=== PATIENT | male | born 1965 ===

== ENCOUNTER 2017-01-11 22:44 | Emergency (ER) | payer BC, OTHER ==
[2017-01-11 22:44] VITALS: BMI 39.9
[2017-01-11 22:56] VITALS: RESP 16; TEMP 98.3; O2SAT 96
--- NOTE | 2017-01-11 23:28 | ED PDOC ---
Arrival/HPI - General Chief Complaint: High Blood Sugar Time Seen by Provider: 01/11/17 23:13 Historian: Patient - History of Present Illness Narrative History of Present Illness (Text): 01/11/17 23:28 Jermain Bey is a 51 year old male, whose past medical history includes diabetes, hypertension, and hyperlipidemia, who presents to the Emergency department complaining of high blood sugar. Patient states he was recently diagnosed with diabetes mellitus on 01/06/2017 and placed on Metformin. Patient states for the past 5 days he has been experiencing high blood sugar, with blood glucose level of 449 today after eating. Patient states he has been taking medication as directed but denies any significant improvement. Patient states he feels tired and has "dry mouth" but otherwise feels fine. Patient denies any chest pain, shortness of breath, headache, dizziness, nausea, vomiting, diarrhea, urinary symptoms, back pain, neck pain, or any other complaints. PMD: Dr. Tillman Time/Duration: < week (5 days) Symptom Onset: Gradual Symptom Course: Unchanged Activities at Onset: Rest, Light Context: Home Past Medical History - Provider Review Nursing Documentation Reviewed: Yes - Infectious Disease Hx of Infectious Diseases: None - Cardiac Hx Hypertension: Yes - Endocrine/Metabolic Hx Diabetes Mellitus Type 2: Yes Hx Hypothyroidism: Yes (thyoridectomy) - Musculoskeletal/Rheumatological Hx Falls: No - Gastrointestinal Other/Comment: h/o colon resection - Psychiatric Hx Substance Use: No - Surgical History Hx Appendectomy: Yes Other/Comment: R hand surgery. L knee surger - Anesthesia Hx Anesthesia: Yes Hx Anesthesia Reactions: No Hx Malignant Hyperthermia: No Family/Social History - Physician Review Nursing Documentation Reviewed: Yes Family/Social History: Unknown Family HX Smoking Status: Never Smoked Hx Alcohol Use: Yes Hx Substance Use: No Allergies/Home Meds Allergies/Adverse Reactions: Allergies No Known Allergies Allergy (Unverified 06/15/15 16:55) Home Medications: Home Meds Medication Instructions Recorded Confirmed Aspirin [Aspirin Chewable] 81 mg PO DAILY 04/16/16 04/16/16 Rosuvastatin Calcium [Crestor] 20 mg PO DAILY 04/16/16 04/16/16 Thyroid 1 tab PO DAILY 04/16/16 04/16/16 Valsartan/Hydrochlorothiazide 1 tab PO DAILY 04/16/16 04/16/16 [Valsartan-Hctz 320-25 mg Tab] Review of Systems - Physician Review All systems were reviewed & negative as marked: Yes - Review of Systems Constitutional: Normal. absent: Fevers Eyes: Normal ENT: Other (+dry mouth) Respiratory: Normal. absent: SOB, Cough Cardiovascular: Normal. absent: Chest Pain Gastrointestinal: Normal. absent: Abdominal Pain, Diarrhea, Nausea, Vomiting Genitourinary Male: Normal. absent: Dysuria, Frequency, Urinary Output Changes Musculoskeletal: Normal. absent: Back Pain, Neck Pain Skin: Normal. absent: Rash Neurological: Normal. absent: Headache, Dizziness Endocrine: Other (+high blood sugar) Hemo/Lymphatic: Normal Psychiatric: Normal Physical Exam Vital Signs Reviewed: Yes Vital Signs Temp Pulse Resp BP Pulse Ox 01/12/17 03:11 93 H 16 137/81 96 01/12/17 01:04 111 H 16 125/70 96 01/11/17 22:51 98.3 F 115 H 16 135/76 96 Temperature: Afebrile Blood Pressure: Normal Pulse: Regular Respiratory Rate: Normal Appearance: Positive for: Well-Appearing, Non-Toxic, Comfortable Pain Distress: None Mental Status: Positive for: Alert and Oriented X 3 - Systems Exam Head: Present: Atraumatic, Normocephalic Pupils: Present: PERRL Extroacular Muscles: Present: EOMI Conjunctiva: Present: Normal Mouth: Present: Moist Mucous Membranes Neck: Present: Normal Range of Motion Respiratory/Chest: Present: Clear to Auscultation, Good Air Exchange. No: Respiratory Distress, Accessory Muscle Use Cardiovascular: Present: Regular Rate and Rhythm, Normal S1, S2. No: Murmurs Abdomen: Present: Normal Bowel Sounds. No: Tenderness, Distention, Peritoneal Signs Back: Present: Normal Inspection Upper Extremity: Present: Normal Inspection. No: Cyanosis, Edema Lower Extremity: Present: Normal Inspection. No: Edema Neurological: Present: GCS=15, CN II-XII Intact, Speech Normal Skin: Present: Warm, Dry, Normal Color. No: Rashes Psychiatric: Present: Alert, Oriented x 3, Normal Insight, Normal Concentration Medical Decision Making ED Course and Treatment: 01/11/17 23:28 Impression: 51 year old male complaining of high blood sugar for 5 days. Differential Diagnosis included but are not limited to: diabetes mellitus vs. hypergylcemia Plan: -- Labs -- IV fluids -- Insulin -- Reassess and disposition Progress Notes: 01/12/17 03:14 On reevaluation the patient feels better and is in no acute distress. I have discussed the results and plan with the patient, who expresses understanding. Patient given the opportunity to ask question, all questions were answered and there is agreement with the plan to discharge the patient home. Patient is stable for discharge. Patient was instructed to follow up with physician/clinic in 1-2 days or return if symptoms persist/worsen or new concerning symptoms arise. Re-evaluation Time: 03:13 Reassessment Condition: Re-examined, Improved - Lab Interpretations Lab Results: 01/11/17 23:52 01/11/17 23:52 Lab Results 01/11/17 23:52: Sodium 138, Potassium 4.4, Chloride 93 L, Carbon Dioxide 30, Anion Gap 19, BUN 16, Creatinine 0.8, Est GFR ( Amer) > 60, Est GFR (Non- Af Amer) > 60, Random Glucose 387 H* D, Calcium 10.2, Total Bilirubin 1.0, AST 75 H, ALT 88 H, Alkaline Phosphatase 124, Total Protein 7.9, Albumin 4.4, Globulin 3.5, Albumin/Globulin Ratio 1.3 01/11/17 23:52: WBC 7.7, RBC 5.16, Hgb 16.6, Hct 46.7, MCV 90.5, MCH 32.2, MCHC 35.5, RDW 12.4, Plt Count 232, MPV 11.3 H, Gran % 65.1, Lymph % (Auto) 19.8 L, [place] % (Auto) 8.6 H, Eos % (Auto) 4.8, Baso % (Auto) 1.7, Gran # 4.98, Lymph # 1.5, [place] # 0.7 H, Eos # 0.4, Baso # 0.13 I have reviewed the lab results: Yes - Medication Orders Current Medication Orders: Sodium Chloride (Sodium Chloride 0.9%) 1,000 mls @ 150 mls/hr IV .Q6H40M [facility] Last Admin: 01/11/17 23:44 Dose: 150 mls/hr Discontinued Medications Insulin Human Regular (Humulin R) 6 units SC STAT STA Stop: 01/11/17 23:31 Last Admin: 01/11/17 23:43 Dose: 6 units - Scribe Statement The provider has reviewed the documentation as recorded by the [employer] Kelly [employer] Provider Scribe Attestation: All medical record entries made by the Scribe were at my direction and personally dictated by me. I have reviewed the chart and agree that the record accurately reflects my personal performance of the history, physical exam, medical decision making, and the department course for this patient. I have also personally directed, reviewed, and agree with the discharge instructions and disposition. Disposition/Present on Arrival - Present on Arrival Any Indicators Present on Arrival: No History of DVT/PE: No History of Uncontrolled Diabetes: No Urinary Catheter: No History of Decub. Ulcer: No History Surgical Site Infection Following: None - Disposition Have Diagnosis and Disposition been Completed?: Yes Diagnosis: Hyperglycemia Disposition: HOME/ ROUTINE Disposition Time: 03:14 Patient Problems: Current Active Problems Problem Status Onset Hyperglycemia Acute Condition: GOOD Discharge Instructions (ExitCare): Diabetic Hyperglycemia (ED) Prescriptions: glyBURIDE [Micronase] 2.5 mg PO DAILY #14 tab Referrals: Brodie Tillman MD [Primary Care Provider] - Follow up with primary Forms: [employer] (Macedonian)
[2017-01-11] MEDS ORDERED: Insulin Regular 1 UNITS/0.01 ML ML SC STA (23:30)
[2017-01-11] MEDS ORDERED: Sodium Chloride 0.9% 1,000 ML IV SCH (23:30)
[2017-01-12 00:02] LABS: BASO # 0.13 K/mm3 (0.0-2.0); BASO % 1.7 % (0.0-3.0); EOS # 0.4 (0.0-0.7); EOS % 4.8 % (1.5-5.0); GRAN # 4.98 (1.4-6.5); GRAN % 65.1 % (50.0-68.0); HEMOGLOBIN 16.6 g/dL (14.0-18.0); LYMPH # 1.5 (1.2-3.4); LYMPH % 19.8 % (22.0-35.0); MEAN CELL VOLUME 90.5 fl (80.0-105.0); MEAN CORPUSCULAR HEMOGLOBIN 32.2 pg (25.0-35.0); MEAN CORPUSCULAR HGB CONC 35.5 g/dl (31.0-37.0); MEAN PLATELET VOLUME 11.3 fl (7.0-11.0); MONO # 0.7 (0.1-0.6); MONO % 8.6 % (1.0-6.0); PLATELET COUNT 232 10^3/uL (120.0-450.0); RBC 5.16 10^6/uL (3.5-6.1); RED CELL DISTRIBUTION WIDTH 12.4 % (11.5-14.5); WHITE BLOOD COUNT 7.7 10^3/ul (4.5-11.0)
[2017-01-12 00:31] LABS: ALB/GLOB RATIO 1.3 (1.1-1.8); ALBUMIN 4.4 g/dL (3.0-4.8); ALT/SGPT 88 U/L (7-56); AST/SGOT 75 U/L (15-59); BLOOD UREA NITROGEN 16 mg/dL (7-21); CALCIUM 10.2 mg/dL (8.4-10.5); GFR AFRICAN-AMERICAN > 60; GFR NON-AFRICAN AMERICAN > 60
[2017-01-12 03:14] VITALS: BP 137/81; PULSE 93
== END 2017-01-12 03:30 | disposition home or self-care (01) ==
LOC: ED 22:44
DX: E11.65 Type 2 diabetes mellitus with hyperglycemia (principal); I10 Essential (primary) hypertension; E78.5 Hyperlipidemia, unspecified
CPT/HCPCS: 80053; 82948; 85025; 96372; 99283; J7040

== ENCOUNTER 2017-06-18 00:04 | Emergency (ER) | payer BC ==
[2017-06-18 00:28] VITALS: BMI 36.9
[2017-06-18] MEDS ORDERED: Sodium Chloride 0.9% 1,000 ML IV STA (00:33)
[2017-06-18] MEDS ORDERED: Morphine 2 mg/ml ISec IVP STA ×2 (00:33→02:03)
--- NOTE | 2017-06-18 00:33 | ED PDOC ---
Arrival/HPI - General Chief Complaint: Abdominal Pain Time Seen by Provider: 06/18/17 00:21 Historian: Patient - History of Present Illness Narrative History of Present Illness (Text): 06/18/17 00:32 Jermain Bey is a 51 year old male, whose past medical history includes diverticulitis, colon resection, appendectomy, diabetes, hypertension, and hyperlipidemia, who presents to the Emergency department complaining of abdominal pain. Patient states he has been experiencing intermittent upper abdominal pain for a while but states pain worsened over the past 4-5 days. Patient also reports associated nausea and intermittent diarrhea. Patient denies any fever, chills, chest pain, shortness of breath, vomiting, urinary symptoms, back pain, neck pain, headache, dizziness, or any other complaints. Time/Duration: < week (4-5 days) Symptom Onset: Gradual Symptom Course: Unchanged Activities at Onset: Light Context: Home Past Medical History - Provider Review Nursing Documentation Reviewed: Yes - Infectious Disease Hx of Infectious Diseases: None - Cardiac Hx Hypertension: Yes - Endocrine/Metabolic Hx Diabetes Mellitus Type 2: Yes Hx Hypothyroidism: Yes (thyoridectomy) - Musculoskeletal/Rheumatological Hx Falls: No - Gastrointestinal Other/Comment: h/o colon resection - Psychiatric Hx Substance Use: No - Surgical History Hx Appendectomy: Yes Other/Comment: R hand surgery. L knee surger - Anesthesia Hx Anesthesia: Yes Hx Anesthesia Reactions: No Hx Malignant Hyperthermia: No Family/Social History - Physician Review Nursing Documentation Reviewed: Yes Family/Social History: Unknown Family HX Smoking Status: Never Smoked Hx Alcohol Use: Yes Hx Substance Use: No Allergies/Home Meds Allergies/Adverse Reactions: Allergies No Known Allergies Allergy (Unverified 06/15/15 16:55) Home Medications: Home Meds Medication Instructions Recorded Confirmed Aspirin [Aspirin Chewable] 81 mg PO DAILY 04/16/16 06/18/17 Rosuvastatin Calcium [Crestor] 20 mg PO DAILY 04/16/16 06/18/17 Thyroid 1 tab PO DAILY 04/16/16 06/18/17 Valsartan/Hydrochlorothiazide 1 tab PO DAILY 04/16/16 06/18/17 [Valsartan-Hctz 320-25 mg Tab] Review of Systems - Physician Review All systems were reviewed & negative as marked: Yes - Review of Systems Constitutional: Normal. absent: Fevers Eyes: Normal ENT: Normal Respiratory: Normal. absent: SOB, Cough Cardiovascular: Normal. absent: Chest Pain Gastrointestinal: Abdominal Pain, Diarrhea, Nausea Genitourinary Male: Normal. absent: Dysuria, Frequency, Hematuria, Urinary Output Changes Musculoskeletal: Normal. absent: Back Pain, Neck Pain, Other Skin: Normal Neurological: Normal. absent: Headache, Dizziness Endocrine: Normal Hemo/Lymphatic: Normal Psychiatric: Normal Physical Exam Vital Signs Reviewed: Yes Vital Signs Temp Pulse Resp BP Pulse Ox 06/18/17 04:59 98.4 F 76 18 143/88 100 06/18/17 00:33 98.2 F 88 18 142/86 99 Temperature: Afebrile Blood Pressure: Normal Pulse: Regular Respiratory Rate: Normal Appearance: Positive for: Well-Appearing, Non-Toxic, Comfortable Pain Distress: None Mental Status: Positive for: Alert and Oriented X 3 - Systems Exam Head: Present: Atraumatic, Normocephalic Pupils: Present: PERRL Extroacular Muscles: Present: EOMI Conjunctiva: Present: Normal Mouth: Present: Moist Mucous Membranes Neck: Present: Normal Range of Motion Respiratory/Chest: Present: Clear to Auscultation, Good Air Exchange. No: Respiratory Distress, Accessory Muscle Use Cardiovascular: Present: Regular Rate and Rhythm, Normal S1, S2. No: Murmurs Abdomen: Present: Normal Bowel Sounds. No: Tenderness, Distention, Peritoneal Signs Back: Present: Normal Inspection Upper Extremity: Present: Normal Inspection. No: Cyanosis, Edema Lower Extremity: Present: Normal Inspection. No: Edema Neurological: Present: GCS=15, CN II-XII Intact, Speech Normal Skin: Present: Warm, Dry, Normal Color. No: Rashes Psychiatric: Present: Alert, Oriented x 3, Normal Insight, Normal Concentration Medical Decision Making ED Course and Treatment: 06/18/17 00:32 Impression: 51 year old male complaining of upper abdominal pain, nausea, and diarrhea for 4 -5 days. Plan: -- EKG -- Labs, cardiac enzymes, amylase, lipase -- Urinalysis -- IV fluids -- Zofran -- Protonix -- Morphine -- Reassess and disposition Prior Visits: Notes and results from previous visits were reviewed. On 01/11/2017, pt was seen in the Emergency department for hyperglycemia. Pt was d/c home. Progress Notes: Reviewed EKG, sinus tachycardia at [address]-segment elevations or depressions, no T-wave inversions, normal intervals. 06/18/17 04:55 CT Abdomen and Pelvis shows: LOWER THORAX: Incidental 3 mm noncalcified pulmonary nodule in the right lung base. For lowrisk patients, no follow-up is necessary. For high-risk patients (smoking history or other known risk factors) an optional chest CT at 12 months could be performed. ABDOMEN: LIVER: Fatty infiltration of the liver. GALLBLADDER AND BILE DUCTS: No CT evidence of acute cholecystitis. No evidence of significant biliary ductal dilatation. PANCREAS: No CT evidence of acute pancreatitis. SPLEEN: No acute abnormality of the spleen identified. ADRENALS: No acute abnormality of the adrenal glands identified. KIDNEYS AND URETERS: No acute abnormality of the kidneys identified. No evidence of significant hydrouereteronephrosis. STOMACH AND BOWEL: Surgical suture line/surgical anatomosis is noted in the sigmoid colon. Colonic diverticulosis, with no evidence of acute diverticulitis. Otherwise, no significant abnormality of the bowel is identified. No evidence of bowel obstruction or pancolitis. APPENDIX: Normal appendix is not seen, and there is a reported history of previous appendectomy. PELVIS: BLADDER: Mild infiltration of the fat around the bladder is noted. Bladder wall appears mildly thickened. Findings could be signs of mild cystitis. REPRODUCTIVE: No acute abnormality of the reproductive organs is seen. ABDOMEN and PELVIS: INTRAPERITONEAL SPACE: No evidence of free intraperitoneal air or fluid. BONES/JOINTS: No acute fractures or other acute bony abnormality noted. SOFT TISSUES: Postoperative changes involving the anterior pelvic wall. VASCULATURE: No evidence of abdominal aortic aneurysm. No evidence of periaortic hemorrhage. LYMPH NODES: No evidence of diffuse lymphadenopathy. IMPRESSION: - Bladder findings which could be due to mild cystitis. Recommend correlation with urinalysis results. - Otherwise, no evidence of significant acute process. - Incidental 3 mm pumonary nodule. See recommendations above. - See above for remaining findings. 06/18/17 04:59 On re-evaluation, patient feels better and is in no acute distress. I have discussed the results and plan with the patient, who expresses understanding. Patient in agreement with plan to be discharged home. Patient is stable for discharge. Patient was instructed to follow up with physician or return if symptoms worsen or new concerning symptoms arise. - Lab Interpretations Lab Results: 06/18/17 01:05 06/18/17 01:05 Lab Results 06/18/17 02:30: Urine Color yellow, Urine Appearance Clear, Urine pH 6.0, Ur Specific [place] >= 1.030, Urine Protein Negative, Urine Glucose (UA) Negative, Urine Ketones Negative, Urine Blood Negative, Urine Nitrate Negative, Urine Bilirubin Negative, Urine Urobilinogen 0.2, Ur Leukocyte Esterase Negative 06/18/17 01:05: Sodium 141, Potassium 3.5 L, Chloride 99, Carbon Dioxide 26, Anion Gap 19, BUN 15, Creatinine 0.8, Est GFR ( Amer) > 60, Est GFR (Non- Af Amer) > 60, Random Glucose 135 H, Calcium 10.3, Total Bilirubin 0.5, AST 59, ALT 96 H, Alkaline Phosphatase 70, Lactate Dehydrogenase 425, Total Creatine Kinase 116, Troponin I < 0.01, Total Protein 8.0, Albumin 4.3, Globulin 3.7, Albumin/Globulin Ratio 1.2, Amylase 74, Lipase 193 06/18/17 01:05: PT 12.9 H, INR 1.13 H, APTT 30.4 06/18/17 01:05: WBC 8.5, RBC 5.06, Hgb 15.7, Hct 46.8, MCV 92.5, MCH 31.0, MCHC 33.5, RDW 12.9, Plt Count 245, MPV 10.3, Gran % 70.3 H, Lymph % (Auto) 18.4 L, [place] % (Auto) 5.8, Eos % (Auto) 4.6, Baso % (Auto) 0.9, Gran # 5.99, Lymph # 1.6 , [place] # 0.5, Eos # 0.4, Baso # 0.08 I have reviewed the lab results: Yes - RAD Interpretation Radiology Orders: 06/18/17 02:03 ABD & PELVIS IV CONTRAST ONLY [CT] Stat Irrigation Worker: Radiologist - EKG Interpretation Interpreted by ED Physician: Yes Type: 12 lead EKG - Medication Orders Current Medication Orders: Sodium Chloride (Sodium Chloride 0.9%) 1,000 mls @ 100 mls/hr IV .Q10H STA Stop: 06/18/17 10:32 Last Admin: 06/18/17 01:04 Dose: 100 mls/hr eMAR Start Stop Document 06/18/17 01:04 GABBY (Rec: 06/18/17 01:05 GABBY [id number]) Intravenous Solution Start Date 06/18/17 Start Time 01:04 Discontinued Medications Morphine Sulfate (Morphine) 2 mg IVP STAT STA Stop: 06/18/17 00:34 Last Admin: 06/18/17 01:04 Dose: 2 mg MAR Pain Assessment Document 06/18/17 01:04 GABBY (Rec: 06/18/17 01:04 GABBY [id number]) Pain Reassessment Is this a pain reassessment? No IVP Administration Document 06/18/17 01:04 GABBY (Rec: 06/18/17 01:04 GABBY [id number]) Charges for Administration # of IVP Administrations 1 Morphine Sulfate (Morphine) 2 mg IVP STAT STA Stop: 06/18/17 02:04 Last Admin: 06/18/17 02:37 Dose: 2 mg MAR Pain Assessment Document 06/18/17 02:37 GABBY (Rec: 06/18/17 02:37 GABBY [id number]) Pain Reassessment Is this a pain reassessment? Yes IVP Administration Document 06/18/17 02:37 GABBY (Rec: 06/18/17 02:37 GABBY [id number]) Charges for Administration # of IVP Administrations 1 Ondansetron HCl (Zofran Inj) 4 mg IVP STAT STA Stop: 06/18/17 00:34 Last Admin: 06/18/17 01:04 Dose: 4 mg IVP Administration Document 06/18/17 01:04 GABBY (Rec: 06/18/17 01:04 GABBY [id number]) Charges for Administration # of IVP Administrations 1 Pantoprazole Sodium (Protonix Inj) 40 mg IVP ONCE STA Stop: 06/18/17 00:35 Last Admin: 06/18/17 01:04 Dose: 40 mg IVP Administration Document 06/18/17 01:04 GABBY (Rec: 06/18/17 01:04 GABBY [id number]) Charges for Administration # of IVP Administrations 1 - Scribe Statement The provider has reviewed the documentation as recorded by the Ronn Pak Provider Scribe Attestation: All medical record entries made by the Scribe were at my direction and personally dictated by me. I have reviewed the chart and agree that the record accurately reflects my personal performance of the history, physical exam, medical decision making, and the department course for this patient. I have also personally directed, reviewed, and agree with the discharge instructions and disposition. Disposition/Present on Arrival - Present on Arrival Any Indicators Present on Arrival: No History of DVT/PE: No History of Uncontrolled Diabetes: No Urinary Catheter: No History of Decub. Ulcer: No History Surgical Site Infection Following: None - Disposition Have Diagnosis and Disposition been Completed?: Yes Diagnosis: Abdominal pain Disposition: HOME/ ROUTINE Disposition Time: 04:59 Patient Problems: Current Active Problems Problem Status Onset Abdominal pain Acute Condition: GOOD Discharge Instructions (ExitCare): Acute Abdominal Pain (ED) Prescriptions: Pantoprazole Sodium [Protonix] 40 mg PO DAILY #14 ect Forms: [employer] (Monegasque)
[2017-06-18 01:17] LABS: BASO # 0.08 [, K/mm3] (0.0-2.0); BASO % 0.9 % (0.0-3.0); EOS # 0.4 (0.0-0.7); EOS % 4.6 % (1.5-5.0); GRAN # 5.99 (1.4-6.5); GRAN % 70.3 % (50.0-68.0); HEMOGLOBIN 15.7 g/dL (14.0-18.0); LYMPH # 1.6 (1.2-3.4); LYMPH % 18.4 % (22.0-35.0); MEAN CELL VOLUME 92.5 fl (80.0-105.0); MEAN CORPUSCULAR HGB CONC 33.5 g/dl (31.0-37.0); MEAN PLATELET VOLUME 10.3 fl (7.0-11.0); MONO # 0.5 (0.1-0.6); MONO % 5.8 % (1.0-6.0); RBC 5.06 [, 10^6/uL] (3.5-6.1); RED CELL DISTRIBUTION WIDTH 12.9 % (11.5-14.5); WHITE BLOOD COUNT 8.5 [, 10^3/ul] (4.5-11.0)
[2017-06-18 01:25] LABS: ALB/GLOB RATIO 1.2 (1.1-1.8); ALBUMIN 4.3 g/dL (3.0-4.8); ALT/SGPT 96 U/L (7-56); AMYLASE 74 U/L (35-125); AST/SGOT 59 U/L (17-59); BLOOD UREA NITROGEN 15 mg/dL (7-21); CALCIUM 10.3 mg/dL (8.4-10.5); GFR AFRICAN-AMERICAN > 60; GFR NON-AFRICAN AMERICAN > 60; LIPASE 193 U/L (23-300)
[2017-06-18 01:33] LABS: INR 1.13 (0.93-1.08); PARTIAL THROMBOPLASTIN TIME 30.4 Seconds (25.1-36.5); PROTHROMBIN TIME 12.9 SECONDS (9.4-12.5)
[2017-06-18 01:36] LABS: TROPONIN I < 0.01 ng/mL
[2017-06-18] MEDS ORDERED: Iohexol 350 MG/100 ML VIAL ONE (03:16)
[2017-06-18 04:24] LABS: URINE BILIRUBIN NEGATIVE (NEGATIVE); URINE BLOOD NEGATIVE (NEGATIVE); URINE GLUCOSE (UA) NEGATIVE (NEGATIVE); URINE LEUKOCYTE ESTERASE NEGATIVE Leu/uL (NEGATIVE); URINE NITRATE NEGATIVE (NEGATIVE); URINE PROTEIN NEGATIVE mg/dL (<30 mg/dL); URINE UROBILINOGEN 0.2 E.U./dL (<1 E.U./dL)
[2017-06-18 04:33] LABS: URINE APPEARANCE CLEAR (CLEAR)
--- NOTE | 2017-06-18 04:45 | CT ---
EXAM: CT Abdomen and Pelvis With Intravenous Contrast EXAM DATE/TIME: 06/18/2017 2:03 AM CLINICAL HISTORY: 51 years old, male; Pain; Abdominal pain; Localized; Other: Central; Prior surgery; Surgery date: 6+ months; Surgery type: HX colon resection, HX appendectomy; Patient HX: Pt drank po contrast for prior CT 2 days ago. Did not have exam was in to much pain however; Additional info: Abd pain TECHNIQUE: Axial computed tomography images of the abdomen and pelvis with intravenous contrast. All CT scans at this facility use one or more dose reduction techniques, viz.: automated exposure control; ma/kV adjustment per patient size (including targeted exams where dose is matched to indication; i.e. head); or iterative reconstruction technique. Coronal and sagittal reformatted images were created and reviewed. CONTRAST: 100 mL of omni 350 administered intravenously. COMPARISON: No relevant prior studies available. FINDINGS: LOWER THORAX: Incidental 3 mm noncalcified pulmonary nodule in the right lung base. For low-risk patients, no follow-up is necessary. For high-risk patients (smoking history or other known risk factors) an optional chest CT at 12 months could be performed. ABDOMEN: LIVER: Fatty infiltration of the liver. GALLBLADDER AND BILE DUCTS: No CT evidence of acute cholecystitis. No evidence of significant biliary ductal dilatation. PANCREAS: No CT evidence of acute pancreatitis. SPLEEN: No acute abnormality of the spleen identified. ADRENALS: No acute abnormality of the adrenal glands identified. KIDNEYS AND URETERS: No acute abnormality of the kidneys identified. No evidence of significant hydrouereteronephrosis. STOMACH AND BOWEL: Surgical suture line/surgical anatomosis is noted in the sigmoid colon. Colonic diverticulosis, with no evidence of acute diverticulitis. Otherwise, no significant abnormality of the bowel is identified. No evidence of bowel obstruction or pancolitis. APPENDIX: Normal appendix is not seen, and there is a reported history of previous appendectomy. PELVIS: BLADDER: Mild infiltration of the fat around the bladder is noted. Bladder wall appears mildly thickened. Findings could be signs of mild cystitis. REPRODUCTIVE: No acute abnormality of the reproductive organs is seen. ABDOMEN and PELVIS: INTRAPERITONEAL SPACE: No evidence of free intraperitoneal air or fluid. BONES/JOINTS: No acute fractures or other acute bony abnormality noted. SOFT TISSUES: Postoperative changes involving the anterior pelvic wall. VASCULATURE: No evidence of abdominal aortic aneurysm. No evidence of periaortic hemorrhage. LYMPH NODES: No evidence of diffuse lymphadenopathy. IMPRESSION: - Bladder findings which could be due to mild cystitis. Recommend correlation with urinalysis results. - Otherwise, no evidence of significant acute process. - Incidental 3 mm pumonary nodule. See recommendations above. - See above for remaining findings.
[2017-06-18 04:58] VITALS: RESP 18
[2017-06-18 05:00] VITALS: BP 143/88; PULSE 76; TEMP 98.4; O2SAT 100
--- NOTE | 2017-06-18 10:28 | CARD ---
APPROVED REPORT EKG Measurement Heart [id number] <Conclusion> Sinus tachycardia NSSTW changes No change
== END 2017-06-18 05:04 | disposition home or self-care (01) ==
LOC: ED 00:04
DX: R10.10 Upper abdominal pain, unspecified (principal); I10 Essential (primary) hypertension; E78.5 Hyperlipidemia, unspecified; E03.9 Hypothyroidism, unspecified; E11.9 Type 2 diabetes mellitus without complications
CPT/HCPCS: 74177; 80053; 81003; 82150; 82550; 83615; 83690; 84484; 85025; 85610; 85730; 93005; 96374; 96375; 96376; 99283; C9113; J2270; J2405; J7040; Q9967

== ENCOUNTER 2017-06-27 23:13 | Emergency (ER) | payer BC ==
[2017-06-27 23:25] VITALS: BMI 37.2
[2017-06-27 23:32] VITALS: BP 146/91; PULSE 105; RESP 18; TEMP 98.3; O2SAT 96
[2017-06-27] MEDS ORDERED: Tmp-Smz 800 mg-160 mg DS Tab PO ONE (23:53)
--- NOTE | 2017-06-27 23:53 | ED PDOC ---
Arrival/HPI - General Chief Complaint: Abnormal Skin Integrity Time Seen by Provider: 06/27/17 23:21 Historian: Patient - History of Present Illness Narrative History of Present Illness (Text): 06/27/17 23:10 Jermain Bey is a 51 year old male, whose past medical history includes hypertension, diabetes, and hypothyroidism, who presents to the emergency department complaining of erythema and irritation in the lower abdomen after wearing a belt. Patient denies any chest pain, shortness of breath, nausea, vomiting, diarrhea, dysuria, fever, or other complaints. Time/Duration: 24 hours Symptom Onset: Sudden Symptom Course: Unchanged Activities at Onset: Light Past Medical History - Provider Review Nursing Documentation Reviewed: Yes - Infectious Disease Hx of Infectious Diseases: None - Cardiac Hx Hypertension: Yes - Pulmonary Hx Respiratory Disorders: No - Neurological Hx Neurological Disorder: No - HEENT Hx HEENT Disorder: No - Renal Hx Renal Disorder: No - Endocrine/Metabolic Hx Diabetes Mellitus Type 2: Yes Hx Hypothyroidism: Yes (thyoridectomy) - Hematological/Oncological Hx Blood Disorders: No - Integumentary Hx Dermatological Disorder: No - Musculoskeletal/Rheumatological Hx Falls: No - Gastrointestinal Other/Comment: h/o colon resection - Genitourinary/Gynecological Hx Genitourinary Disorders: No - Psychiatric Hx Psychophysiologic Disorder: No Hx Substance Use: No - Surgical History Hx Appendectomy: Yes Other/Comment: R hand surgery. L knee surger - Anesthesia Hx Anesthesia: Yes Hx Anesthesia Reactions: No Hx Malignant Hyperthermia: No Family/Social History - Physician Review Nursing Documentation Reviewed: Yes Family/Social History: No Known Family HX Smoking Status: Never Smoked Hx Alcohol Use: Yes Hx Substance Use: No Allergies/Home Meds Allergies/Adverse Reactions: Allergies No Known Allergies Allergy (Verified 06/27/17 23:26) Home Medications: Home Meds Medication Instructions Recorded Confirmed Aspirin [Aspirin Chewable] 81 mg PO DAILY 04/16/16 06/18/17 Rosuvastatin Calcium [Crestor] 20 mg PO DAILY 04/16/16 06/18/17 Thyroid 1 tab PO DAILY 04/16/16 06/18/17 Valsartan/Hydrochlorothiazide 1 tab PO DAILY 04/16/16 06/18/17 [Valsartan-Hctz 320-25 mg Tab] Review of Systems - Review of Systems Constitutional: absent: Fevers Respiratory: absent: SOB Cardiovascular: absent: Chest Pain Gastrointestinal: absent: Abdominal Pain, Constipation, Diarrhea, Nausea, Vomiting Genitourinary Male: absent: Dysuria Musculoskeletal: absent: Back Pain Skin: Other (erythema and irritation on lower abdomen ) Neurological: absent: Headache Endocrine: absent: Diaphoresis Physical Exam Vital Signs Reviewed: Yes Vital Signs Temp Pulse Resp BP Pulse Ox 06/27/17 23:30 98.3 F 105 H 18 146/91 H 96 Temperature: Afebrile Blood Pressure: Hypertensive Pulse: Tachycardic Respiratory Rate: Normal Appearance: Positive for: Well-Appearing, Non-Toxic, Comfortable Pain Distress: None Mental Status: Positive for: Alert and Oriented X 3 - Systems Exam Head: Present: Atraumatic, Normocephalic Pupils: Present: PERRL Extroacular Muscles: Present: EOMI Conjunctiva: Present: Normal Mouth: Present: Moist Mucous Membranes Neck: Present: Normal Range of Motion Respiratory/Chest: Present: Clear to Auscultation, Good Air Exchange. No: Respiratory Distress, Accessory Muscle Use Cardiovascular: Present: Regular Rate and Rhythm, Normal S1, S2. No: Murmurs Abdomen: Present: Normal Bowel Sounds. No: Tenderness, Distention, Peritoneal Signs Back: Present: Normal Inspection. No: Midline Tenderness, Paraspinal Tenderness Upper Extremity: Present: Normal Inspection. No: Cyanosis, Edema, Tenderness Lower Extremity: Present: Normal Inspection. No: Edema Neurological: Present: GCS=15, CN II-XII Intact, Speech Normal Skin: Present: Warm, Dry, Normal Color, Erythematous (and irritated closed wound in lower abdomen ), Other (no signs of shingles). No: Rashes Psychiatric: Present: Alert, Oriented x 3, Normal Insight, Normal Concentration Medical Decision Making ED Course and Treatment: 06/27/17 Impression: 51 year old male with erythema and irritation on lower abdomen. Abdomen is soft , non-tender and there are no signs of shingles Plan: -- Bactrim DS and Keflex -- Reassess and disposition Progress Notes: Patient will be treated with antibiotic and d/c home. 06/28/17 02:45 - Medication Orders Current Medication Orders: Discontinued Medications Cephalexin Monohydrate (Keflex) 500 mg PO STAT STA PRN Reason: Protocol Stop: 06/27/17 23:54 Last Admin: 06/28/17 00:13 Dose: 500 mg Trimethoprim/Sulfamethoxazole (Bactrim Ds Tab) 1 tab PO ONCE ONE PRN Reason: Protocol Stop: 06/27/17 23:54 Last Admin: 06/28/17 00:13 Dose: 1 tab - Scribe Statement The provider has reviewed the documentation as recorded by the Spenseribe Ariella Briceno Provider Scribe Attestation: All medical record entries made by the Scribe were at my direction and personally dictated by me. I have reviewed the chart and agree that the record accurately reflects my personal performance of the history, physical exam, medical decision making, and the department course for this patient. I have also personally directed, reviewed, and agree with the discharge instructions and disposition. Disposition/Present on Arrival - Present on Arrival Any Indicators Present on Arrival: No History of DVT/PE: No History of Uncontrolled Diabetes: No Urinary Catheter: No History of Decub. Ulcer: No History Surgical Site Infection Following: None - Disposition Have Diagnosis and Disposition been Completed?: Yes Diagnosis: Abrasion of skin with infection Disposition: HOME/ ROUTINE Disposition Time: 00:15 Condition: GOOD Discharge Instructions (ExitCare): Cellulitis (ED) Prescriptions: Sulfamethoxazole/Trimethoprim [Bactrim DS 800 mg-160 mg] 1 tab PO BID #14 tab Cephalexin [Keflex] 500 mg PO BID #14 capsule Valacyclovir HCl [Valtrex] 1 gm PO TID #21 tablet Forms: [employer] (Chadian)
== END 2017-06-28 00:14 | disposition home or self-care (01) ==
LOC: ED 23:13
DX: S30.811A Abrasion of abdominal wall, initial encounter (principal); X58.XXXA Exposure to other specified factors, initial encounter; Y92.9 Unspecified place or not applicable

== ENCOUNTER 2017-10-03 22:56 | Emergency (ER) | payer BC ==
[2017-10-03 22:57] VITALS: BMI 37.2
[2017-10-03 23:24] VITALS: TEMP 98.2
[2017-10-03] MEDS ORDERED: Sodium Chloride 0.9% 1,000 ML IV SCH (23:45)
--- NOTE | 2017-10-03 23:47 | ED PDOC ---
Arrival/HPI - General Chief Complaint: Weakness/Neurological Deficit Time Seen by Provider: 10/03/17 23:18 Historian: Patient - History of Present Illness Narrative History of Present Illness (Text): 10/03/17 23:15 Jermain Bey is a 51 year old male, whose past medical history includes diabetes, hypertension, and hyperlipidemia, who presents to the Emergency department brought in EMS complaining left arm numbness. Patient states he has been experiencing left arm numbness and weakness for the past 2 hours. Patient also reports associated nausea. Patient states he took an Aspirin at home. Patient denies any fever, chills, chest pain, shortness of breath, abdominal pain, vomiting, diarrhea, urinary symptoms, back pain, neck pain, headache, dizziness, or any other complaints. Time/Duration: 1-3 hours Symptom Onset: Gradual Symptom Course: Unchanged Activities at Onset: Light Context: Home Past Medical History - Provider Review Nursing Documentation Reviewed: Yes - Infectious Disease Hx of Infectious Diseases: None - Cardiac Hx Cardiac Disorders: Yes Hx Hypertension: Yes - Pulmonary Hx Respiratory Disorders: No - Neurological Hx Neurological Disorder: No - HEENT Hx HEENT Disorder: No - Renal Hx Renal Disorder: No - Endocrine/Metabolic Hx Endocrine Disorders: Yes Hx Diabetes Mellitus Type 2: Yes Hx Hypothyroidism: Yes (thyoridectomy) - Hematological/Oncological Hx Blood Disorders: No - Integumentary Hx Dermatological Disorder: No - Musculoskeletal/Rheumatological Hx Musculoskeletal Disorders: Yes Hx Fractures: Yes - Gastrointestinal Hx Gastrointestinal Disorders: Yes Other/Comment: h/o colon resection - Genitourinary/Gynecological Hx Genitourinary Disorders: No - Psychiatric Hx Psychophysiologic Disorder: No Hx Substance Use: No - Surgical History Hx Appendectomy: Yes Other/Comment: R hand surgery. L knee surger - Anesthesia Hx Anesthesia: Yes Hx Anesthesia Reactions: No Hx Malignant Hyperthermia: No Family/Social History - Physician Review Nursing Documentation Reviewed: Yes Family/Social History: Unknown Family HX Smoking Status: Never Smoked Hx Alcohol Use: Yes Hx Substance Use: No Allergies/Home Meds Allergies/Adverse Reactions: Allergies No Known Allergies Allergy (Verified 10/03/17 23:20) Home Medications: Home Meds Medication Instructions Recorded Confirmed Aspirin [Aspirin Chewable] 81 mg PO DAILY 04/16/16 10/03/17 Valsartan/Hydrochlorothiazide 1 tab PO DAILY 04/16/16 10/03/17 [Valsartan-Hctz 320-25 mg Tab] Dulaglutide [Trulicity] 0.5 ml SC Q7D 10/03/17 10/03/17 Levothyroxine [Synthroid] 100 mcg PO DAILY 10/03/17 10/03/17 MetFORMIN [glucoPHAGE] 1,000 mg PO BID 10/03/17 10/03/17 Review of Systems - Physician Review All systems were reviewed & negative as marked: Yes - Review of Systems Constitutional: Normal. absent: Fevers Eyes: Normal ENT: Normal Respiratory: Normal. absent: SOB, Cough Cardiovascular: Normal. absent: Chest Pain Gastrointestinal: Nausea. absent: Abdominal Pain, Diarrhea, Vomiting Genitourinary Male: Normal. absent: Dysuria, Frequency, Hematuria, Urinary Output Changes Musculoskeletal: Normal. absent: Back Pain, Neck Pain Skin: Normal. absent: Rash Neurological: Focal Weakness (+left arm weakness/numbness). absent: Headache Endocrine: Normal Hemo/Lymphatic: Normal Psychiatric: Normal Physical Exam Vital Signs Reviewed: Yes Vital Signs Temp Pulse Resp BP Pulse Ox 10/04/17 01:18 98 H 18 130/49 L 100 10/04/17 01:14 99 H 18 131/52 L 99 10/04/17 00:36 107 H 18 149/82 99 10/04/17 00:12 103 H 18 115/69 98 10/03/17 23:24 98.2 F 117 H 16 103/68 95 10/03/17 23:23 98.2 F 114 H 18 126/70 98 Temperature: Afebrile Blood Pressure: Normal Pulse: Regular Respiratory Rate: Normal Appearance: Positive for: Well-Appearing, Non-Toxic, Comfortable Pain Distress: None Mental Status: Positive for: Alert and Oriented X 3 Finger Stick Blood Glucose: 189 - Systems Exam Head: Present: Atraumatic, Normocephalic Pupils: Present: PERRL Extroacular Muscles: Present: EOMI Conjunctiva: Present: Normal Mouth: Present: Moist Mucous Membranes Neck: Present: Normal Range of Motion Respiratory/Chest: Present: Clear to Auscultation, Good Air Exchange. No: Respiratory Distress, Accessory Muscle Use Cardiovascular: Present: Regular Rate and Rhythm, Normal S1, S2. No: Murmurs Abdomen: No: Tenderness, Distention, Peritoneal Signs Back: Present: Normal Inspection Upper Extremity: Present: Normal Inspection. No: Cyanosis, Edema Lower Extremity: Present: Normal Inspection. No: Edema Neurological: Present: GCS=15, CN II-XII Intact, Speech Normal Skin: Present: Warm, Dry, Normal Color. No: Rashes Psychiatric: Present: Alert, Oriented x 3, Normal Insight, Normal Concentration Medical Decision Making ED Course and Treatment: 10/03/17 23:15 Impression: 51 year old male complaining of left arm weakness/numbness for 2 hours [employer]. Differential Diagnosis included but are not limited to: TIA vs. CVA vs. paresthesias Plan: -- CT Head w/o contrast -- EKG -- Chest X-Ray -- Labs, blood type and screen, troponin, lipid panel -- IV fluids -- Reassess and disposition Prior Visits: Notes and results from previous visits were reviewed. Progress Notes: 10/03/17 23:17 Pt brought in via EMS. Code stroke called. Pt taken to CT scan. 10/03/17 23:[address] Bae, neurologist teacher of the emotionally disturbed, who is aware and agrees with plan. CT Head results pending 10/03/17 23:45 Reviewed EKG, sinus tachycardia at [address]-segment elevations or depressions, no T-wave inversions, normal intervals. 10/03/17 23:[address] Bae, states pt is not a candidate for tPA. 10/04/17 00:10 Reviewed radiolgoy, Chest X-Ray shows no acute processes. CT Head shows: FINDINGS: Brain: Mild atrophy. No intracranial hemorrhage. No mass. No definite edema. Ventricles: No hydrocephalus. Bones/joints: No acute fracture. Soft tissues: Unremarkable. Vasculature: Minimal atherosclerotic disease of intracranial arteries. Sinuses: Mild mucosal thickening +/- minimal fluid of LEFT maxillary sinus. Scattered minimal mucosal thickening of ethmoid sinuses. Mastoid air cells: No mastoid effusion. Orbits: Unremarkable as visualized. IMPRESSION: 1. No definite territorial infarction. Acute infarction may be CT occult within first 24 hours. If focal deficit persists, consider followup CT or MRI for further evaluation. 2. Incidental/non-acute findings are described above. 10/04/17 01:25 Discussed results and hospital admission plan with pt, pt states he does not wish to stay in the hospital. Pt will sign out against medical advice. The patient declines admission, and wishes to leave the Emergency Department. This action is against my medical advice to the patient and the decision was made with informed refusal. The patient was told that admission is necessary and a full explanation of the rationale was given. The risks of leaving were explained to the patient and include, but are not limited to, worsening of known or currently unknown conditions, permanent disability and from undiagnosed or untreated conditions The patient has the capacity to make this informed decision and understands the clinical situation and my explanation of the risks of leaving. The patient voluntarily accepts these risks, and a signed AMA form documenting our conversation was obtained. The patient was given the opportunity to ask questions and reconsider. The patient was encouraged to return to the Emergency Department at any time for further care. - Lab Interpretations Lab Results: 10/03/17 23:58 10/03/17 23:58 Lab Results 10/04/17 01:03: Blood Type O POSITIVE, Antibody Screen Negative, BBK History Checked No verified bt 10/04/17 01:00: Blood Type Confirm O POSITIVE 10/03/17 23:58: Hemoglobin A1c 5.6 10/03/17 23:58: Sodium 145, Potassium 4.0, Chloride 98, Carbon Dioxide 28, Anion Gap 22 H, BUN 39 H, Creatinine 1.2, Est GFR ( Amer) > 60, Est GFR ( Non-Af Amer) > 60, Random Glucose 98, Calcium 10.0, Total Bilirubin 0.7, AST 67 H, ALT 100 H, Alkaline Phosphatase 85, Troponin I < 0.01, Total Protein 8.4 H, Albumin 4.9 H, Globulin 3.5, Albumin/Globulin Ratio 1.4, Triglycerides 191 H, Cholesterol 226 H, LDL Cholesterol Direct 151 H, HDL Cholesterol 46 10/03/17 23:58: PT 13.1 H, INR 1.15 H, APTT 28.6 10/03/17 23:58: WBC 8.2, RBC 5.10, Hgb 15.9, Hct 45.0, MCV 88.2 D, MCH 31.2, MCHC 35.3, RDW 12.6, Plt Count 403, MPV 10.1, Gran % 64.6, Lymph % (Auto) 22.0, Lamar % (Auto) 7.5 H, Eos % (Auto) 4.7, Baso % (Auto) 1.2, Gran # 5.32, Lymph # ( Auto) 1.8, Lamar # (Auto) 0.6, Eos # (Auto) 0.4, Baso # (Auto) 0.10 10/03/17 23:21: POC Glucose (mg/dL) 89 I have reviewed the lab results: Yes - RAD Interpretation Radiology Orders: 10/03/17 23:32 HEAD W/O (CODE STROKE) [CT] Stat CHEST PORTABLE [RAD] Stat Steamtable Worker: ED Physician, Radiologist - EKG Interpretation Interpreted by ED Physician: Yes Type: 12 lead EKG - Medication Orders Current Medication Orders: Discontinued Medications Sodium Chloride (Sodium Chloride 0.9%) 1,000 mls @ 100 mls/hr IV .Q10H KRIS Last Admin: 10/04/17 00:04 Dose: 100 mls/hr eMAR Start Stop Document 10/04/17 00:04 EMERY (Rec: 10/04/17 00:09 EMERY [id number]) Intravenous Solution Start Date 10/04/17 Start Time 00:04 NIHSS Scale ([place]) Time Performed: 23:17 - How Severe is the Stoke Baseline Level of Consciousness: 0=Alert LOC to Questions: 0=Both comments correct LOC to commands: 0=Obeys both correctly Best Gaze: 0=Normal Visual: 0=No visual loss Facial: 0=Normal Motor Arm - Left: 0=No drift Motor Arm - Right: 0=No drift Motor Leg - Left: 0=No drift Motor Leg - Right: 0=No drift Limb Ataxia: 0=Absent Sensory: 0=Normal Best Language: 0=No aphasia Dysarthia: 0=Normal articulation Extinction & Inattention (Neglect): 0=Normal, no object Score: 0 Risk Level: No Stroke Risk rTPA Inclusion/Exclusion - Refusal of Treatment Patient Refused Treatment: No - Inclusion Criteria for Altepase Patient is 18 years or Older: Yes The Clinical Diagnosis of Ischemic Stroke That is Causing a Potentially Disabling Neurological Deficit: No Time of Onset is Well Established to be Less Than 270 Minute Before Treatment Would Begin: Yes Risk/Benefit Discussed With Patient/Family Member Present: Yes - Exclusion Criteria for Altepase Uncontrolled Hypertension at Time of Treatment (Systolic BP above 185 or Diastolic BP above 110 mmHg): No Active Internal Bleeding: No Known Bleeding Diathesis Including but Not Limited to: Platelets Below 100,000/ mm,PTT Above 40 sec After Heparin Use, Current Use of Oral Anitcoagulant With INR Greater Than 1.7 or PT Greater Than 15 secs: No Evidence of an Intracranial Hemorrhage: No Evidence of Major Acute Infarct With Signs Greater Than 1/3 MCA Territory: No Suspicion of Subarachnoid Hemorrhage on Pretreatment Evaluation Even if CT Head Negative For Hemorrhage: No - Warning to TPA With Conditions Condition: Stroke Serevity Too Mild - Scribe Statement The provider has reviewed the documentation as recorded by the Ronn Pak Provider Scribe Attestation: All medical record entries made by the Ronn were at my direction and personally dictated by me. I have reviewed the chart and agree that the record accurately reflects my personal performance of the history, physical exam, medical decision making, and the department course for this patient. I have also personally directed, reviewed, and agree with the discharge instructions and disposition. Disposition/Present on Arrival - Present on Arrival Any Indicators Present on Arrival: No History of DVT/PE: No History of Uncontrolled Diabetes: Yes Urinary Catheter: No History of Decub. Ulcer: No History Surgical Site Infection Following: None - Disposition Have Diagnosis and Disposition been Completed?: Yes Diagnosis: TIA (transient ischemic attack) Disposition: AGAINST MEDICAL ADVICE Disposition Time: 01:20 Condition: UNKNOWN Forms: [employer] (Guinean)
--- NOTE | 2017-10-04 00:10 | CT ---
EXAM: CT Head Without Intravenous Contrast CLINICAL HISTORY: 51 years old, male; Signs and symptoms; Numbness / parasthesia; Left; Additional info: Code stroke TECHNIQUE: Axial computed tomography images of the head/brain without intravenous contrast. All CT scans at this facility use one or more dose reduction techniques, viz.: automated exposure control; ma/kV adjustment per patient size (including targeted exams where dose is matched to indication; i.e. head); or iterative reconstruction technique. Coronal and sagittal reformatted images were created and reviewed. COMPARISON: No relevant prior studies available. FINDINGS: Brain: Mild atrophy. No intracranial hemorrhage. No mass. No definite edema. Ventricles: No hydrocephalus. Bones/joints: No acute fracture. Soft tissues: Unremarkable. Vasculature: Minimal atherosclerotic disease of intracranial arteries. Sinuses: Mild mucosal thickening +/- minimal fluid of LEFT maxillary sinus. Scattered minimal mucosal thickening of ethmoid sinuses. Mastoid air cells: No mastoid effusion. Orbits: Unremarkable as visualized. IMPRESSION: 1. No definite territorial infarction. Acute infarction may be CT occult within first 24 hours. If focal deficit persists, consider followup CT or MRI for further evaluation. 2. Incidental/non-acute findings are described above.
[2017-10-04 00:14] VITALS: RESP 18
[2017-10-04 00:17] LABS: BASO # 0.1 K/mm3 (0.0-2.0); BASO % 1.2 % (0.0-3.0); EOS # 0.4 (0.0-0.7); EOS % 4.7 % (1.5-5.0); GRAN # 5.32 (1.4-6.5); GRAN % 64.6 % (50.0-68.0); HEMOGLOBIN 15.9 g/dL (14.0-18.0); LYMPH # 1.8 (1.2-3.4); MEAN CORPUSCULAR HEMOGLOBIN 31.2 pg (25.0-35.0); MEAN CORPUSCULAR HGB CONC 35.3 g/dl (31.0-37.0); MEAN PLATELET VOLUME 10.1 fl (7.0-11.0); MONO # 0.6 (0.1-0.6); MONO % 7.5 % (1.0-6.0); RBC 5.1 10^6/uL (3.5-6.1); RED CELL DISTRIBUTION WIDTH 12.6 % (11.5-14.5); WHITE BLOOD COUNT 8.2 10^3/ul (4.5-11.0)
[2017-10-04 00:18] LABS: MEAN CELL VOLUME 88.2 fl (80.0-105.0)
[2017-10-04 00:27] LABS: INR 1.15 (0.93-1.08); PARTIAL THROMBOPLASTIN TIME 28.6 Seconds (25.1-36.5); PROTHROMBIN TIME 13.1 SECONDS (9.4-12.5)
[2017-10-04 00:30] LABS: ALB/GLOB RATIO 1.4 (1.1-1.8); ALBUMIN 4.9 g/dL (3.0-4.8); GFR AFRICAN-AMERICAN > 60; GFR NON-AFRICAN AMERICAN > 60; HDL CHOLESTEROL 46 mg/dL (29-60)
[2017-10-04 00:40] LABS: ALT/SGPT 100 U/L (7-56); AST/SGOT 67 U/L (17-59); BLOOD UREA NITROGEN 39 mg/dL (7-21); TROPONIN I < 0.01 ng/mL
[2017-10-04 00:42] LABS: LDL CHOLESTEROL 151 mg/dL (0-129)
[2017-10-04 01:58] VITALS: BP 130/49; PULSE 98; O2SAT 100
--- NOTE | 2017-10-04 07:45 | CP.PCM.CON ---
Past Patient History - Infectious Disease Hx of Infectious Diseases: None - Past Social History Smoking Status: Never Smoked - CARDIAC Hx Cardiac Disorders: Yes Hx Hypertension: Yes - PULMONARY Hx Respiratory Disorders: No - NEUROLOGICAL Hx Neurological Disorder: No - HEENT Hx HEENT Problems: No - RENAL Hx Chronic Kidney Disease: No - ENDOCRINE/METABOLIC Hx Endocrine Disorders: Yes Hx Diabetes Mellitus Type 2: Yes Hx Hypothyroidism: Yes (thyoridectomy) - HEMATOLOGICAL/ONCOLOGICAL Hx Blood Disorders: No - INTEGUMENTARY Hx Dermatological Problems: No - MUSCULOSKELETAL/RHEUMATOLOGICAL Hx Musculoskeletal Disorders: Yes Hx Fractures: Yes - GASTROINTESTINAL Hx Gastrointestinal Disorders: Yes Other/Comment: h/o colon resection - GENITOURINARY/GYNECOLOGICAL Hx Genitourinary Disorders: No - PSYCHIATRIC Hx Psychophysiologic Disorder: No Hx Substance Use: No - SURGICAL HISTORY Hx Appendectomy: Yes Other/Comment: R hand surgery. L knee surger - ANESTHESIA Hx Anesthesia: Yes Hx Anesthesia Reactions: No Hx Malignant Hyperthermia: No Meds Allergies/Adverse Reactions: Allergies Allergy/AdvReac Type Severity Reaction Status Date / Time No Known Allergies Allergy Verified 10/03/17 23:20 Results - Vital Signs Recent Vital Signs: Last Vital Signs Temp 98.2 F 10/03/17 23:24 Pulse 98 H 10/04/17 01:18 Resp 18 10/04/17 01:18 BP 130/49 L 10/04/17 01:18 Pulse Ox 100 10/04/17 01:18 - Labs Result Diagrams: 10/03/17 23:58 10/03/17 23:58 Labs: Laboratory Results - last 24 hr 10/03/17 10/03/17 10/03/17 23:21 23:58 23:58 WBC 8.2 RBC 5.10 Hgb 15.9 Hct 45.0 MCV 88.2 D MCH 31.2 MCHC 35.3 RDW 12.6 Plt Count 403 MPV 10.1 Gran % 64.6 Lymph % (Auto) 22.0 Sully % (Auto) 7.5 H Eos % (Auto) 4.7 Baso % (Auto) 1.2 Gran # 5.32 Lymph # (Auto) 1.8 Sully # (Auto) 0.6 Eos # (Auto) 0.4 Baso # (Auto) 0.10 PT 13.1 H INR 1.15 H APTT 28.6 Sodium Potassium Chloride Carbon Dioxide Anion Gap BUN Creatinine Est GFR ( Amer) Est GFR (Non-Af Amer) POC Glucose (mg/dL) 89 Random Glucose Calcium Total Bilirubin AST ALT Alkaline Phosphatase Troponin I Total Protein Albumin Globulin Albumin/Globulin Ratio Triglycerides Cholesterol LDL Cholesterol Direct HDL Cholesterol Blood Type Blood Type Confirm Antibody Screen BBK History Checked 10/03/17 10/04/17 10/04/17 23:58 01:00 01:03 WBC RBC Hgb Hct MCV MCH MCHC RDW Plt Count MPV Gran % Lymph % (Auto) Sully % (Auto) Eos % (Auto) Baso % (Auto) Gran # Lymph # (Auto) Sully # (Auto) Eos # (Auto) Baso # (Auto) PT INR APTT Sodium 145 Potassium 4.0 Chloride 98 Carbon Dioxide 28 Anion Gap 22 H BUN 39 H Creatinine 1.2 Est GFR ( Amer) > 60 Est GFR (Non-Af Amer) > 60 POC Glucose (mg/dL) Random Glucose 98 Calcium 10.0 Total Bilirubin 0.7 AST 67 H ALT 100 H Alkaline Phosphatase 85 Troponin I < 0.01 Total Protein 8.4 H Albumin 4.9 H Globulin 3.5 Albumin/Globulin Ratio 1.4 Triglycerides 191 H Cholesterol 226 H LDL Cholesterol Direct 151 H HDL Cholesterol 46 Blood Type O POSITIVE Blood Type Confirm O POSITIVE Antibody Screen Negative BBK History Checked No verified bt
--- NOTE | 2017-10-04 08:15 | RAD ---
HISTORY: Code Stroke COMPARISON: 04/15/2016 FINDINGS: LUNGS: No active pulmonary disease. PLEURA: No significant pleural effusion identified, no pneumothorax apparent. CARDIOVASCULAR: No radiographic findings to suggest acute or significant cardiovascular disease. OSSEOUS STRUCTURES: No significant abnormalities. VISUALIZED UPPER ABDOMEN: Normal. OTHER FINDINGS: None. IMPRESSION: No active disease. No significant interval change compared to the prior examination(s).
--- NOTE | 2017-10-04 14:07 | CARD ---
APPROVED REPORT EKG Measurement Heart [id number] <Conclusion> Sinus tachycardia Small q 3,F Mild NSSTW changes No change
== END 2017-10-04 01:18 | disposition left against medical advice (07) ==
LOC: ED 22:56
DX: G45.9 Transient cerebral ischemic attack, unspecified (principal); I10 Essential (primary) hypertension; E78.5 Hyperlipidemia, unspecified; E11.9 Type 2 diabetes mellitus without complications
CPT/HCPCS: 70450; 71045; 80053; 80061; 82948; 83036; 84484; 85025; 85610; 85730; 86850; 86900; 93005; 99285; J7040

== ENCOUNTER 2018-05-19 21:26 | Emergency (ER) | payer BC ==
[2018-05-19 21:38] VITALS: RESP 18; O2SAT 100; BMI 32.5
--- NOTE | 2018-05-19 21:40 | ED PDOC ---
Arrival/HPI - General Historian: Patient - History of Present Illness Narrative History of Present Illness (Text): 05/19/18 21:41 52M presents with two days of sore Left ear pain. Pt reports using a q tip deep in the ear and hitting the TM. Reports pain afterwards deep in the ear. Pt also complains of worse hearing in the ear compare to the Right. Pt last went to his ENT 6 months ago, who told him his ears are normal. ROS Pos+ pain in L ear, mild hearing loss compared to right Neg- fevers, chills, mastoid pain/swelling, bleeding/swelling/drainage in ear, neck stiffness <Trent Watson - Last Filed: 05/19/18 23:34> <Bethel Rodriguez - Last Filed: 05/20/18 03:11> - General Chief Complaint: ENT Problem Time Seen by Provider: 05/19/18 21:31 Past Medical History - Infectious Disease Hx of Infectious Diseases: None - Cardiac Hx Cardiac Disorders: Yes Hx Hypertension: Yes - Pulmonary Hx Respiratory Disorders: No - Neurological Hx Neurological Disorder: No - HEENT Hx HEENT Disorder: No - Renal Hx Renal Disorder: No - Endocrine/Metabolic Hx Endocrine Disorders: Yes Hx Diabetes Mellitus Type 2: Yes Hx Hypothyroidism: Yes (thyoridectomy) - Hematological/Oncological Hx Blood Disorders: No - Integumentary Hx Dermatological Disorder: No - Musculoskeletal/Rheumatological Hx Musculoskeletal Disorders: Yes Hx Fractures: Yes - Gastrointestinal Hx Gastrointestinal Disorders: Yes Other/Comment: h/o colon resection - Genitourinary/Gynecological Hx Genitourinary Disorders: No - Psychiatric Hx Psychophysiologic Disorder: No Hx Substance Use: No - Surgical History Hx Appendectomy: Yes Other/Comment: R hand surgery. L knee surger - Anesthesia Hx Anesthesia: Yes Hx Anesthesia Reactions: No Hx Malignant Hyperthermia: No <Trent Watson - Last Filed: 05/19/18 23:34> Family/Social History Family/Social History: Unknown Family HX Smoking Status: Never Smoked Hx Alcohol Use: Yes Hx Substance Use: No <Trent Watson - Last Filed: 05/19/18 23:34> Allergies/Home Meds <Trent Watson - Last Filed: 05/19/18 23:34> <Bethel Rodriguez - Last Filed: 05/20/18 03:11> Allergies/Adverse Reactions: Allergies No Known Allergies Allergy (Verified 10/03/17 23:20) Home Medications: Home Meds Medication Instructions Recorded Confirmed RX: Aspirin [Aspirin Chewable] 81 mg PO DAILY 04/16/16 10/03/17 Valsartan/Hydrochlorothiazide 1 tab PO DAILY 04/16/16 10/03/17 [Valsartan-Hctz 320-25 mg Tab] Dulaglutide [Trulicity] 0.5 ml SC Q7D 10/03/17 10/03/17 Levothyroxine [Synthroid] 100 mcg PO DAILY 10/03/17 10/03/17 RX: MetFORMIN [glucoPHAGE] 1,000 mg PO BID 10/03/17 10/03/17 Physical Exam Temperature: Afebrile Blood Pressure: Hypertensive Pulse: Regular Respiratory Rate: Normal Appearance: Positive for: Well-Appearing, Non-Toxic Pain Distress: Moderate Mental Status: Positive for: Alert and Oriented X 3 - Systems Exam Head: Present: Atraumatic, Normocephalic Pupils: Present: PERRL Extroacular Muscles: Present: EOMI. No: Gaze Palsy Conjunctiva: Present: Normal Pharnyx: Present: ERYTHEMA, EXUDATE Neck: Present: Normal Range of Motion Respiratory/Chest: Present: Clear to Auscultation. No: Wheezes Cardiovascular: Present: Regular Rate and Rhythm, Murmurs, Normal S1, S2 Back: Present: Normal Inspection Upper Extremity: Present: Normal Inspection, NORMAL PULSES Neurological: Present: GCS=15, CN II-XII Intact Skin: Present: Warm, Dry, Normal Color Psychiatric: Present: Alert, Oriented x 3, Normal Insight <Trent Watson - Last Filed: 05/19/18 23:34> Vital Signs Temp Pulse Resp BP Pulse Ox 05/19/18 21:38 97.9 F 89 18 172/108 H 100 <Bethel Rodriguez - Last Filed: 05/20/18 03:11> Medical Decision Making ED Course and Treatment: 05/19/18 22:13 Debrox 5-10 drops to affected ear <Trent Watson - Last Filed: 05/19/18 23:34> ED Course and Treatment: 05/20/18 0359 Wax improved s/p debrox, pt notes improved hearing, pain resolved. Re-examined, no TM rupture or TM wax or erythema b/l. - Lab Interpretations Lab Results: Lab Results 05/19/18 22:22: POC Glucose (mg/dL) 85 - Medication Orders Current Medication Orders: Carbamide Peroxide (Debrox Ear Drops) 1 ml AU BID KRIS Last Admin: 05/19/18 22:22 Dose: 10 drop <Bethel Rodriguez - Last Filed: 05/20/18 03:11> - PA / [employer] / Resident Statement MD/DO has examined the patient and agrees with the treatment plan. (52 yr old male p/w L was cerumen impaction and decreased hearing. L ear debroxed with improved hearing, no tm rupture on reval or erythema) <Bethel Rodriguez - Last Filed: 05/20/18 03:11> Disposition/Present on Arrival - Present on Arrival Any Indicators Present on Arrival: No History of DVT/PE: No History of Uncontrolled Diabetes: Yes Urinary Catheter: No History Surgical Site Infection Following: None - Disposition Have Diagnosis and Disposition been Completed?: Yes Disposition Time: 23:35 Patient Plan: Discharge <Trent Watson - Last Filed: 05/19/18 23:34> <Bethel Rodriguez - Last Filed: 05/20/18 03:11> - Disposition Diagnosis: Wax in ear Disposition: HOME/ ROUTINE Patient Problems: Current Active Problems Problem Status Onset Wax in ear Acute Condition: GOOD Discharge Instructions (ExitCare): Ear Wax Impaction (DC) Additional Instructions: STEPHEN READ, thank you for letting us take care of you today. Your provider was Bethel Rodriguez and you were treated for (L) EAR PAIN. The emergency medical care you received today was directed at your acute symptoms. If you were prescribed any medication, please fill it and take as directed. It may take several days for your symptoms to resolve. Return to the Emergency Department if your symptoms worsen, do not improve, or if you have any other problems. Please follow up with your PMD and ENT for care. Bring any paperwork you were given at discharge with you along with any medications you are taking to your follow up visit. Our treatment cannot replace ongoing medical care by a primary care provider outside of the emergency department. Please use the rest of the Debrox solution 5-10 drops in your ear once a day until pain has improved, please follow up with your ENT if further intervention is required or pain is not improved by monday morning. Dr Daniel [phone] Thank you for allowing the [facility] team to be part of your care today. If you had an X-Ray or CT scan: A Radiologist will review the ED reading if any change in treatment is needed we will contact you. If you had a blood, urine, or wound culture: It will take several days for the results, if any change in treatment is needed we will contact you. If you had an STI test: It will take 48 hours for the results. Please call after 1 week if you have not heard back. Referrals: Yung Daniel, DO [Staff Provider] - Follow up with primary Forms: [employer] ([place]ese)
[2018-05-20 04:39] VITALS: BP 168/88; PULSE 80; TEMP 98
== END 2018-05-19 23:25 | disposition home or self-care (01) ==
LOC: ED 21:26
DX: H61.22 Impacted cerumen, left ear (principal); E11.9 Type 2 diabetes mellitus without complications